=== PATIENT | male | born 1990 | race Caucasian/White ===

== ENCOUNTER 2024-03-02 20:03 | Emergency (ER) | payer MEDICAID ==
[~2024-03-02] VITALS: Ht 177.8 cm; Wt 81.6 kg
[2024-03-02 20:58] VITALS: BP 146/74; TEMP 98.1; O2SAT 98
[2024-03-02] MEDS ORDERED: IBUPROFEN 600 MG TABLET ONE (21:29)
[2024-03-02] MEDS ORDERED: TDAP [DIPH/PERTUSSIS/TET] 0.5 ML VIAL IM ONE (21:29)
[2024-03-02] MEDS: IBUPROFEN 600 MG TABLET PO ONE (21:34)
[2024-03-02] MEDS: TDAP [DIPH/PERTUSSIS/TET] 0.5 ML VIAL IM ONE (21:35)
== END 2024-03-02 22:15 | disposition home or self-care (01) ==
LOC: ER 20:09
DX: S61.011A Laceration without foreign body of right thumb without damage to nail, initial encounter (principal); W19.XXXA Unspecified fall, initial encounter; Y93.89 Activity, other specified; Y92.89 Other specified places as the place of occurrence of the external cause; Y99.8 Other external cause status
CPT/HCPCS: 12001; 73110; 73130; 73140; 90471; 90715; 99284; A6403